=== PATIENT | male | born 1960 | race Caucasian/White ===

== ENCOUNTER 2016-12-14 22:20 | Emergency (ER) | payer SELFPAY ==
[~2016-12-14] VITALS: Ht 165.1 cm; Wt 80.5 kg
[~2016-12-14 22:20] MED LIST: ACET325T33 PO; ASPI-664 PO; ATOR40TA68 PO; CALC667C PO; DOCU-144 PO; FER325 PO; GEMF600T60 PO; HEP30MU30 CATHETER; LANT3I SC; LISI10TA2 PO; METO25TA7 PO; NOVO3I SC; PANT40TA4 PO; POLY17PO6 PO; SENN-53 PO
[2016-12-14 23:09] VITALS: Ht 165.1 cm; Wt 80.5 kg
[2016-12-15] MEDS ORDERED: PHENAZOPYRIDINE 100 MG TAB PO ONE (03:30)
[2016-12-15 04:06] LABS: ADD UMIC YES; URINE BILIRUBIN (Dip) NEGATIVE (NEGATIVE); URINE BLOOD (Dip) 3+ (NEGATIVE); URINE COLOR LT. YELLOW (YELLOW); URINE GLUCOSE (Dip) NEGATIVE (NEGATIVE); URINE KETONES (Dip) NEGATIVE (NEGATIVE); URINE LEUKOCYTE ESTERASE (Dip) 2+ (NEGATIVE); URINE NITRITE (Dip) NEGATIVE (NEGATIVE); URINE TOTAL PROTEIN (Dip) 2+ (NEGATIVE); URINE UROBILINOGEN (Dip) 0.2 E.U./dL (0.1-1.0)
[2016-12-15 04:18] LABS: BACTERIA,URINE FEW; SQUAMOUS EPITHELIAL CELL,UR OCCASIONAL; URINE RBCS >50 /HPF (0)
[2016-12-15] MEDS ORDERED: PHEN-537 PO (04:27)
[2016-12-15] MEDS ORDERED: BACTDS PO (04:27)
--- NOTE | 2016-12-15 04:29 | ERD ---
ER Documentation Chief Complaint Date/Time DATE: 12/15/16 TIME: 04:29 Chief Complaint pelvic pain, hematuria, dysuria with Hx of recurrent UTI HPI 56 year old male presents with CC of dysuria x 3 days. States that we was treated for UTI 2 weeks ago, at which point Sx resolved and then returned 3 days ago. He denies fever, flank pain, hematuria, and nausea/vomiting. He does not recall name of ABx he was recently on. He currently rates his pain an 8/10 in severity, only occurs while urinating. ROS All systems reviewed and are negative except as per history of present illness. Medications Home Meds Active Scripts Phenazopyridine Hcl* (Pyridium*) 100 Mg Tab, 100 MG PO TID Y for URINARY PAIN, # 8 TAB Prov:Sheryl Ortiz PA-C 12/15/16 Sulfamethoxazole-Trimethoprim* (Bactrim* DS) 800-160 Mg Tab, 1 TAB PO BID for 10 Days, #20 TAB Prov:Sheryl Ortiz PA-C 12/15/16 Ferrous Sulfate* (Ferrous Sulfate*) 325 Mg Tabec, 325 MG PO DAILY, #60 TAB Prov:CHRISTIAN VARGAS DO 07/25/16 Sennosides* (Senna Lax*) 8.6 Mg Tablet, 1 TAB PO BID for 30 Days, #60 TAB Prov:TROY BACA MD 05/23/16 Polyethylene Glycol* (Miralax*) 17 Gm Powd.pack, 17 GM PO DAILY for 30 Days, #30 Prov:TROY BACA MD 05/23/16 Pantoprazole* (Pantoprazole*) 40 Mg Tablet.dr, 40 MG PO DAILY@06 for 30 Days, # 30 Prov:TROY BACA MD 05/23/16 Metoprolol Succinate* (Toprol XL*) 25 Mg Tab.sr.24h, 25 MG PO BID for 30 Days, # 30 Prov:TROY BACA MD 05/23/16 Insulin Glargine* (Lantus*) 100 Unit/Ml Soln, 25 UNIT SC DAILY for 30 Days, BOT Prov:TROY BACA MD 05/23/16 Insulin Aspart* (Novolog Insulin Pen*) 100 Unit/Ml Soln, 4 UNIT SC WITH MEALS for 30 Days, BOT Prov:TROY BACA MD 05/23/16 Heparin Sod (Porcine) (Heparin) 1,000 Unit/Ml Soln, 4000 UNIT CATHETER AFTER DIALYSIS for 30 Days, BOT Prov:TROY BACA MD 05/23/16 Docusate Sodium* (Colace*) 100 Mg Capsule, 100 MG PO BID for 30 Days, #60 CAP Prov:TROY BACA MD 05/23/16 Calcium Acetate* (Calcium Acetate*) 667 Mg Capsule, 667 MG PO WITH MEALS for 30 Days, #90 CAP Prov:TROY BACA MD 05/23/16 Acetaminophen* (Tylenol*) 325 Mg Tablet, 650 MG PO Q6H Y for PAIN LEVEL 1-3 OR FEVER for 30 Days, #120 TAB Prov:TROY BACA MD 05/23/16 Reported Medications Aspirin* (Aspirin* EC) 81 Mg Tablet.dr, 81 MG PO DAILY, TAB 05/02/16 Gemfibrozil* (Gemfibrozil*) 600 Mg Tablet, 600 MG PO BID, TAB 05/02/16 Atorvastatin* (Atorvastatin*) 40 Mg Tablet, 40 MG PO QHS, #30 TAB 05/02/16 Metoprolol Succinate* (Toprol XL*) 25 Mg Tab.sr.24h, 25 MG PO BID, #60 TAB 05/02/16 Lisinopril* (Lisinopril*) 10 Mg Tablet, 10 MG PO DAILY, #30 TAB 05/02/16 Allergies Allergies: Coded Allergies: No Known Allergy (Unverified , 05/13/16) PMhx/Soc History of Surgery: No Anesthesia Reaction: No Hx Neurological Disorder: No Hx Respiratory Disorders: No Hx Cardiac Disorders: Yes (HTN, DYSLIPIDEMIA) Hx Psychiatric Problems: No Hx Miscellaneous Medical Probl: Yes (DM, htn,recent syncope) Hx Alcohol Use: Yes Hx Substance Use: No Hx Tobacco Use: No Smoking Status: Current every day smoker Physical Exam Vitals Vital Signs Date Time Temp Pulse Resp B/P Pulse Ox O2 Delivery O2 Flow Rate FiO2 12/15/16 04:52 98.6 78 18 118/71 98 Room Air 12/14/16 23:09 98.3 89 20 129/83 98 Physical Exam GENERAL: Non-toxic. No apparent signs of distress. No slurred speech. No facial asymmetry. LUNGS: Clear to auscultation. No accessory muscle use. No wheezing, no crackles. No signs or symptoms of respiratory distress. HEART: Regular rate and rhythm. No murmurs, clicks, rubs or gallops. BACK: No midline tenderness. No CVA tenderness. ABDOMEN: Soft, non-tender, and non-distended. No pelvic tenderness. Normoactive bowel sounds. NEURO: Cranial nerves are grossly intact. Normal mental status for age. Good muscle tone. SKIN: There is no apparent rash, petechiae, erythema or swelling. Good skin turgor. Results 24 hrs Laboratory Tests Test 12/15/16 03:47 Urine Bacteria FEW Urine Bilirubin NEGATIVE Urine Clarity CLOUDY Urine Color LT. YELLOW Urine Glucose NEGATIVE% Urine Hemoglobin 3+ Urine Ketones NEGATIVE Urine Leukocyte Esterase 2+ Urine Microscopic RBC >50/HPF Urine Microscopic WBC >50/HPF Urine Nitrite NEGATIVE Urine Specific [place] 1.020 Urine Squamous Epithelial Cells OCCASIONAL Urine Total Protein 2+ Urine Urobilinogen 0.2 E.U./dL Urine pH 7.0 Current Medications Medications (Trade) Dose Ordered Sig/Rachana Route PRN Reason Start Time Stop Time Status Last Admin Dose Admin Phenazopyridine HCl (Pyridium) 100 mg ONCE ONCE PO 12/15/16 03:30 12/15/16 03:31 DC 12/15/16 03:45 Procedures/MDM Patients symptoms are consistent with UTI, STI, or pyelonephritis. I ordered a UA to assess for infection. He is monogamous with , and denies recent sexual intercourse. UA results: 2+ leukocyte esterase, no nitrite, 3+ hemoglobin, and cloudy. Consistent with UTI. Patient denies penile discharge or bleeding and fever. He was afebrile and in no acute distress during his entire stay at the ER. He has not CVA tenderness on exam. I have low suspicion for pyelonephritis, STI, nephrolithiasis, sepsis, and prostatitis. I have prescribed Bactrim, because the patient was recently on ABx for UTI but he can not recall name of it. I assumed it was Cipro as this is commonly prescribed to men with UTIs, however I stated that once they go home they should find out name of ABx and call the ER to change script if it is the same. I also sent out the urine for culture, and said we would call if it is found that bacteria is not susceptible to Bactrim. I suggested he continue use of Pyridium, which we has at home from his previous visit to his doctor. However, I advised against taking this medication correction because it can mask failed treatment with the ABx or a new UTI. Patient is stable for discharge and outpatient management, advised to follow-up with PCP in 1-2 days and discuss possible referral to urology. Departure Diagnosis: Primary Impression: Dysuria Additional Impression: Urinary tract infection in male Condition: Good Patient Instructions: Understanding Urinary Tract Infections (UTIs) Additional Instructions: Call your primary care doctor TOMORROW for an appointment during the next 1-2 days.See the doctor sooner or return here if your condition worsens before your appointment time. Sheryl Ortiz PA-C Dec 15, 2016 04:29 Sheryl Ortiz PA-C Dec 15, 2016 04:29
[2016-12-15 04:52] VITALS: BP 118/71; PULSE 78; RESP 18; TEMP 98.6
== END 2016-12-15 04:50 | disposition home or self-care (01) ==
LOC: FTE 22:20
DX: R30.0 Dysuria (principal); N39.0 Urinary tract infection, site not specified; I10 Essential (primary) hypertension; E11.9 Type 2 diabetes mellitus without complications; F17.210 Nicotine dependence, cigarettes, uncomplicated; Z79.4 Long term (current) use of insulin; Z79.82 Long term (current) use of aspirin
CPT/HCPCS: 81001; 81003; 87086; 99283

== ENCOUNTER 2017-09-14 08:01 | Day surgery (SDC) | payer MEDICAID, OTHER ==
[2017-09-14] VITALS (17 sets, daily range): BP systolic 113–138; BP diastolic 67–87; PULSE 82–98; RESP 18–30; Ht 162.6 cm; Wt 79.7 kg
[~2017-09-14] VITALS: Ht 162.6 cm; Wt 79.7 kg
[~2017-09-14 08:01] MED LIST changes: +BACTDS PO; +CEFAZOLIN 1 GM INJ ONE; +EPHEDrine SULFATE 50 MG/5 ML SYG ONE; +METO-335 PO; -METO25TA7 PO; +PHEN-537 PO
[2017-09-14] MEDS ORDERED: TAMS0.4C2 PO (09:14)
[2017-09-14] MEDS ORDERED: INSU100I33 SC (09:16)
[2017-09-14] MEDS ORDERED: LIDOCAINE 2% (SDV) 5 ML INJ ONE (10:22)
[2017-09-14] MEDS ORDERED: MIDAZOLAM 1 MG/ML 2 ML INJ ONE (10:22)
[2017-09-14] MEDS ORDERED: ROCURONIUM 50 MG INJ ONE (10:22)
[2017-09-14] MEDS ORDERED: FENTAnyl 50 MCG/ML VIAL ONE (10:22)
[2017-09-14] MEDS ORDERED: PROPOFOL 20 ML ONE (10:22)
--- NOTE | 2017-09-14 10:32 | HPN ---
Date/Time of Note Date/Time of Note DATE: 09/14/17 TIME: 10:32 Interval H&P Admission Note Pt. seen H&P reviewed: No system changes DANIE DAVIS MD Sep 14, 2017 10:32
[2017-09-14] MEDS ORDERED: DEXAMETHASONE 4 MG/ML 1 ML INJ ONE ×2 (10:51→11:33)
[2017-09-14] MEDS ORDERED: ONDANSETRON 4 MG INJ ONE (10:51)
[2017-09-14] MEDS ORDERED: FAMOTIDINE 20 MG INJ ONE (10:51)
[2017-09-14] MEDS ORDERED: LABETALOL HCL 20MG INJ ONE (11:25)
[2017-09-14] MEDS ORDERED: PHENYLephrine (100 MCG/ML) 5ML SYG ONE (11:32)
[2017-09-14] MEDS ORDERED: HYDROmorphONE 2 MG/ML SYG ONE (12:08)
[2017-09-14] MEDS ORDERED: OXYCODONE/ACETAMINOPHEN (5/325) TAB PO PRN ×2 (13:00)
[2017-09-14] MEDS ORDERED: hydrALAzine 20 MG INJ IV PRN (13:00)
[2017-09-14] MEDS ORDERED: EPHEDrine SULFATE 50 MG/5 ML SYG IV PRN (13:00)
[2017-09-14] MEDS ORDERED: KETOROLAC 30 MG INJ IV PRN (13:00)
[2017-09-14] MEDS ORDERED: INSULIN ASPART [NOVOLOG] 3 ML PEN SC ONE (13:00)
[2017-09-14] MEDS ORDERED: HYDROCODONE/APAP (5/325) TAB PO PRN (13:00)
[2017-09-14] MEDS ORDERED: morphine (1 MG/ML) 10ML SYRINGE IV PRN ×3 (13:00)
[2017-09-14] MEDS ORDERED: METOCLOPRAMIDE 10 MG INJ IV PRN (13:00)
--- NOTE | 2017-09-14 13:11 | OPR ---
Date/Time of Note Date/Time of Note DATE: 09/14/17 TIME: 13:01 Operative Report Procedure Date: Sep 14, 2017 Preoperative Diagnosis Retained right ureteral JJ stent with calcification on the renal and bladder curls. Postoperative Diagnosis Same Operation/Procedure Performed Right extracorporeal shockwave lithotripsy to the curl of the JJ stent in the kidney, cystoscopy and removal of bladder stones that are on the distal curl of the JJ stent using the holmium laser, removal and replacement of right ureteral JJ stent. 6 Irish by 24 cm long Surgeon see signature line Gas Stove Servicer Helper None Anesthesia Type: general Anesthesiologist: ALIX HARRISON Estimated Blood Loss: minimal Transfusion none Specimen Stone fragments from the bladder and old retained JJ stent Grafts/Implants none Tubes/Drains Right ureteral JJ stent 6 Irish by 24 cm long Complications none Pt Condition Post Procedure: stable Disposition: PACU Indications Retained JJ stent with calcification on its proximal and distal curl. The stent has been there since May 07, 2016 Procedure Description The patient was brought to the operating room and positioned in the supine position on the lithotripsy machine table. Timeout was done the patient was identified by his name birthdate ,the procedure and the side of the procedure he was given 2 g of Ancef IV at the start of the procedure. Then he underwent extra corporeal shockwave lithotripsy to the curl of the JJ stent in the kidney. A total of 2000 shockwaves were given. Then the patient was positioned in the lithotomy position and the genital area was prepped and draped in the usual sterile manner. #21 Irish cystoscope sheath was introduced into the bladder under direct vision. The distal curl of the JJ stent was found to be calcified and covered with stones. Then I used the holmium laser and 500 m laser fiber to break these stones and I irrigating them out of the bladder. Then I used the grasper and grasped the distal end of the JJ stent and under fluoroscopy I pulled it out making sure that the proximal curl in the kidney does straighten up and it did. The stent came out intact. I then irrigated the stones out of the bladder. Then the right ureteral orifice was cannulated was a 5 Irish open ended and a zip wire was advanced through that all the way up to the kidney. On the zip wire I then advanced a 6 Irish by 24 cm long JJ stent. I had the proximal and curling into the kidney and the distal end curling into the bladder. The stone in his right ureter was left alone and will have to be removed at a later time. The patient and his family know of this plan. Patient tolerated the procedure well and was transferred to the recovery room in a stable and satisfactory condition. DANIE DAVIS MD Sep 14, 2017 13:11
[2017-09-14] MEDS ORDERED: GLUCOSE GEL 15 GRAM TUBE BUCCAL PRN (13:30)
[2017-09-14] MEDS ORDERED: DEXTROSE 50% 50 ML SYRINGE IV PRN ×2 (13:30)
[2017-09-14] MEDS ORDERED: GLUCOSE GEL 15 GRAM TUBE PO PRN ×2 (13:30)
[2017-09-14] MEDS ORDERED: GLUCAGON 1 MG INJ IM PRN (13:30)
--- NOTE | 2017-09-14 14:32 | RADRPT ---
PROCEDURE: XR Abdomen. CLINICAL INDICATION: Right ureteral stone TECHNIQUE: AP supine views of the abdomen are available for review. COMPARISON: 05/19/2016 CT FINDINGS: A right nephroureteral stent is visualized. There is a small radiopaque density which may correspond with a calculus within the right kidney just lateral to the superior tip of the nephroureteral sten t measuring about 5 mm. No abnormal calcifications are visualized overlying the left urinary tract. The bowel gas pattern is unremarkable. There is gas and stool within the colon and rectum. There is no evidence of bowel obstruction. The osseous structures are remarkable for degenerative spondylosis of the spine. RPTAT: QQ IMPRESSION: 1. Right nephroureteral stent. 2. Right 5 mm calcific opacity just lateral to the superior aspect of the stent which may correspond with a small calculus within the right kidney. .Tonia Blevins MD, Date Time Electronically viewed and signed by .Tonia Blevins MD, MD on 09/14/2017 14:31 .T/
--- NOTE | 2017-09-15 09:45 | RADRPT ---
PROCEDURE: X-ray fluoroscopy guidance CLINICAL INDICATION: X-ray cystogram with right-sided urogram. ESWL. TECHNIQUE: Fluoroscopic guidance was utilized for an intraoperative procedure. Fluoro time: 19.2 seconds Number of images/sequences: 8 COMPARISON: None available FINDINGS: Right ureteral stent is seen in place. Alignment is appropriate. Osseous structures are remarkable f or degenerative enthesopathy of the spine. Bowel gas pattern as visualized is unremarkable. The surr ounding soft tissues are unremarkable. No other abnormalities seen. ESWL was performed. IMPRESSION: 1. X-ray fluoroscopic guidance utilized for intraoperative procedure. 2. Cystogram with ESWL procedure under fluoroscopic guidance. RPTAT: HMJB .Geovanny Velasco MD, Date Time Electronically viewed and signed by .Geovanny Velasco MD, MD on 09/15/2017 09:44 .B/
== END 2017-09-14 14:30 | disposition home or self-care (01) ==
LOC: SDS 08:01
PROVIDERS: ATTEND Urology
DX: N21.0 Calculus in bladder (principal); E11.9 Type 2 diabetes mellitus without complications; I12.9 Hypertensive chronic kidney disease with stage 1 through stage 4 chronic kidney disease, or unspecified chronic kidney disease; N18.9 Chronic kidney disease, unspecified; E78.5 Hyperlipidemia, unspecified; Z86.73 Personal history of transient ischemic attack (TIA), and cerebral infarction without residual deficits; Z87.891 Personal history of nicotine dependence
CPT/HCPCS: 52318; 52332; 74000; 74430; 82962; 88300; C2617; J0690; J1100; J1170; J2250; J2370; J2405; J2765; J3010; Z7512; Z7610

== ENCOUNTER 2017-10-19 05:37 | Day surgery (SDC) | END 2017-10-19 10:20 | disposition home or self-care (01) ==